=== PATIENT | male | born 1965 | race African-American/Black ===

== ENCOUNTER 2019-02-01 11:48 | Emergency (ER) | payer BC ==
[~2019-02-01] VITALS: Ht 175.3 cm; Wt 69.0 kg
[2019-02-01] MEDS ORDERED: OXYCODONE HCL/ACETAMINOPHEN 5/325MG TABLET PO ONE (12:30)
[2019-02-01 12:42] LABS: CLARITY URINE CLOUDY (CLEAR); COLOR URINE YELLOW (YELLOW); KETONES URINE 1+ (NEGATIVE); LEUKOCYTE ESTERASE URINE TRACE (NEGATIVE); NITRITE URINE NEGATIVE (NEGATIVE); OCCULT BLOOD URINE 3+ (NEGATIVE); PROTEIN URINE TRACE (NEGATIVE); UROBILINOGEN URINE 0.2 E.U./dL (0.2-1.0)
[2019-02-01 16:00] VITALS: BP 165/72
== END 2019-02-01 16:30 | disposition home or self-care (01) ==
LOC: ER 11:48
DX: N13.2 Hydronephrosis with renal and ureteral calculous obstruction (principal)
CPT/HCPCS: 76770; 99284

== ENCOUNTER 2023-12-16 11:01 | Emergency (ER) | payer BC ==
[~2023-12-16] VITALS: Ht 175.3 cm; Wt 74.0 kg
[2023-12-16 11:08] VITALS: O2SAT 99
[2023-12-16] MEDS: IBUPROFEN 600MG TABLET PO STA (12:06)
[2023-12-16] MEDS ORDERED: IBUP-2030 MT (16:14)
[2023-12-16 16:24] VITALS: BP 138/89; PULSE 89; RESP 20; TEMP 98.3
== END 2023-12-16 16:24 | disposition home or self-care (01) ==
LOC: ER 11:01
DX: M25.562 Pain in left knee (principal); E11.9 Type 2 diabetes mellitus without complications; Z87.19 Personal history of other diseases of the digestive system
CPT/HCPCS: 73560; 73700; 99284